=== PATIENT | male | born 1965 | race Caucasian/White ===

== ENCOUNTER → 2018-10-20 13:41 | Outpatient (CLI) | payer BC, SELFPAY ==
--- NOTE | 2018-10-20 13:46 | CT_ITS ---
CT sinus wo/w con CLINICAL INDICATION: ITS.REASON: NEW DAILY PERSISTENT HARRISON, HX SINUSITIS ORDERING PHYSICIAN: Faith Marie MD PATIENT AGE: 53 years COMPARISON: None TECHNIQUE:Axial images obtained with sagittal and coronal reformats. All CT scans at the facility use one or more dose reduction, viz: automated exposure control, ma/kV adjustment per patient size (including targeted exams where dose is matched to indication, i.e. head), or iterative reconstruction technique. FINDINGS: There is moderate mucosal thickening of the ethmoid sinuses bilaterally. The maxillary and frontal sinuses are unremarkable. There is minimal mucosal thickening of the sphenoid sinuses. No sinus air-fluid level is evident. There is mild leftward nasal septal deviation anteriorly and mild rightward nasal septal deviation posteriorly. There is narrowing of the right ostiomeatal complex from mucous or edema. The left OMC is patent. There are minimal osteoarthritic changes of the right TMJ. The orbits have an unremarkable appearance. No mastoid effusion. The middle ears are well aerated. IMPRESSION: Mild inflammatory changes of the paranasal sinuses with mild nasal septal deviation
== END ==
PROVIDERS: PCP Family Medicine; Visit Provider Family Medicine
DX: R51 Headache (principal); J32.9 Chronic sinusitis, unspecified
CPT/HCPCS: 70488

== ENCOUNTER → 2018-10-26 14:28 | Outpatient (CLI) | payer BC, SELFPAY | PROVIDERS: PCP Family Medicine; Visit Provider Family Medicine | DX: R51 Headache (principal); R06.83 Snoring; G47.33 Obstructive sleep apnea (adult) (pediatric) | CPT/HCPCS: 95806 ==

== ENCOUNTER → 2019-04-20 20:11 | Outpatient (CLI) | payer BC, SELFPAY | PROVIDERS: PCP Family Medicine; Visit Provider Specialist | DX: G47.33 Obstructive sleep apnea (adult) (pediatric) (principal); I10 Essential (primary) hypertension | CPT/HCPCS: 95811 ==

== ENCOUNTER → 2019-07-21 08:46 | Outpatient (CLI) | payer BC, SELFPAY ==
[2019-07-21 11:34] LABS: Alanine Aminotransferase 40 U/L (12-78); Albumin Level 3.6 gm/dL (3.4-5.0); Alkaline Phosphatase 82 U/L (46-116); Anion Gap 12.6 mEq/L (5-15); Aspartate Amino Transferase 26 U/L (15-37); Bilirubin,Total 0.2 mg/dL (0.2-1.0); Blood Urea Nitrogen 17 mg/dL (7-18); Calcium 8.9 mg/dL (8.5-10.1); Carbon Dioxide 30 mmol/L (21.0-32.0); Chloride 104 mmol/L (98-107); Creatinine,Serum 1.18 mg/dL (0.70-1.30); Estimated Glomerular Filt Rate 65 ml/min (>60); GFR (African American) 78 ML/MIN (>60); Globulin 3.5 gm/dl (1.3-3.2); Glucose 104 mg/dL (74-106); Potassium 4.6 mmoL/L (3.5-5.1); Sodium 142 mmol/L (136-145); Thyroid Stimulating Hormone 0.73 uIU/ml (0.358-3.740); Total Protein,Serum 7.1 gm/dL (6.4-8.2)
[2019-07-22 23:17] LABS: Folate 10.8 ng/mL (>3.0); Vitamin B12 566 pg/mL (232-1245)
== END ==
PROVIDERS: Visit Provider Nurse Practitioner Family
DX: G47.33 Obstructive sleep apnea (adult) (pediatric) (principal); G47.19 Other hypersomnia; R53.83 Other fatigue
CPT/HCPCS: 36415; 80053; 82607; 82746; 84443

== ENCOUNTER → 2019-08-03 08:41 | Outpatient (CLI) | payer BC, SELFPAY ==
--- NOTE | 2019-08-03 08:42 | FL_ITS ---
PROCEDURE: FL UPPER GI W AIR CLINICAL INDICATION: CHRONIC HEARTBURN COMPARISON: No exams were available for comparison TECHNIQUE: FLUOROSCOPY TIME : FINDINGS: The esophagus, stomach, and duodenum have an unremarkable appearance.There is no evidence of hiatal hernia. No ulcer or mass evident. No mucosal abnormalities apparent. There is normal peristalsis. The duodenal C-loop is nondisplaced. IMPRESSION: Negative upper Dictated by: Nate Emanuel MD 08/03/2019 18:17 Electronically signed by Nate Emanuel MD in [facility] 08/03/2019 18:17
== END ==
PROVIDERS: PCP Family Medicine; Visit Provider Family Medicine
DX: R12 Heartburn (principal)
CPT/HCPCS: 74247

== ENCOUNTER → 2020-04-05 10:13 | Outpatient (CLI) | payer BC, SELFPAY ==
--- NOTE | 2020-04-05 10:22 | XR_ITS ---
PROCEDURE: XR LUMBAR SPINE MIN 4V CLINICAL INDICATION: LOWER BACK PAIN COMPARISON: CR LS5 LUMBAR SPINE 5 VIEWS from 01/15/2017 FINDINGS: There is normal alignment. Small anterior endplate osteophytes are present from L1-S1 Disc spaces are well preserved. No fracture or dislocation. No lytic or blastic change. Other findings:None. IMPRESSION: Mild degenerative changes, no acute finding Dictated by: Nate Emanuel MD 04/05/2020 10:54 Nate Emanuel MD in [facility] 04/05/2020 10:54
== END ==
PROVIDERS: PCP Physician Assistant; Referring Provider Physician Assistant; Visit Provider Physician Assistant
DX: M54.5 Low back pain (principal)
CPT/HCPCS: 72110

== ENCOUNTER → 2020-10-17 13:43 | Outpatient (CLI) | payer BC, SELFPAY ==
--- NOTE | 2020-10-17 13:56 | CT_ITS ---
PROCEDURE: CT HEAD/BRAIN WO/W CON CLINICAL INDICATION: DIZZINESS COMPARISON: No exams were available for comparison TECHNIQUE: IV Contrast: 100ML Isovue 370 Axial images obtained. All CT scans at the facility use one or more dose reduction, viz: automated exposure control, ma/kV adjustment per patient size (including targeted exams where dose is matched to indication, i.e. head), or iterative reconstruction technique. FINDINGS: No midline shift, mass effect, intracranial hemorrhage, hydrocephalus, or extra-axial fluid collection is evident. The calvarium has an unremarkable appearance. There is opacification of the inferior aspect of the right mastoid sinus. Bilateral ethmoid sinus disease IMPRESSION: 1. No acute intracranial findings. 2. Sinus disease Dictated by: Nate Emanuel MD 10/17/2020 15:16 Nate Emanuel MD in [facility] 10/17/2020 15:16
== END ==
LOC: RAD 13:43 → RT 14:40
PROVIDERS: PCP Family Medicine; Visit Provider Family Medicine
DX: R42 Dizziness and giddiness (principal)
CPT/HCPCS: 70470; 93225; 93226; Q9967

== ENCOUNTER → 2021-11-26 14:21 | Outpatient (CLI) | payer OTHER, SELFPAY | PROVIDERS: PCP Family Medicine; Visit Provider Specialist | DX: G47.33 Obstructive sleep apnea (adult) (pediatric) (principal); Z90.89 Acquired absence of other organs | CPT/HCPCS: 95806 ==

== ENCOUNTER 2021-12-21 13:51 | Emergency (ER) | payer OTHER, SELFPAY ==
[2021-12-21] VITALS (7 sets, daily range): BP systolic 124–141; BP diastolic 62–85; PULSE 80–97; RESP 14–16; TEMP 36.9–37.1; O2SAT 98–100; BMI 22.8
--- NOTE | 2021-12-21 14:08 | HMH.EDFALL ---
ED Disposition Clinical Impression: Contusion Qualifiers: Encounter type: initial encounter Contusion area: lower back Qualified Code(s): S30.0XXA - Contusion of lower back and pelvis, initial encounter Disposition: Home, Self-Care Condition on Discharge: Fair Additional Instructions: Take [id number] ibuprofen and/or Tylenol as needed for your pain. Return to the emergency department if you feel worse in any way. Follow-up with your primary care doctor in about 3 to 4 days if you do not feel any better. Referrals: Faith Marie MD [Primary Care Provider] - - Critical Care Critical Care Time: No Attestation: On 12/21/21, the high probability of a clinically significant, sudden or life threatening deterioration of the following system(s) required my full and direct attention, intervention and personal management. The time I documented below is in addition to time spent performing reported procedures but includes the following listed in this critical care notation. Medical Decision Making - Dejuan Inquiry Pt receiving controlled substance: No Vital Signs: 12/21/21 13:52 12/21/21 14:30 12/21/21 15:00 Temperature 98.4 F Temperature Source Oral Pulse Rate 87 85 Pulse Rate [Right] 97 H Respiratory Rate 16 16 Blood Pressure 124/74 132/85 Blood Pressure [Right Arm] 139/62 Blood Pressure Mean 90 94 Blood Pressure Mean [Right Arm] 87 Blood Pressure Source [Right Arm] Automatic Cuff Blood Pressure Position [Right Arm] Sitting 02 Sat by Pulse Oximetry 100 100 98 Oxygen Delivery Method Room Air 12/21/21 15:30 12/21/21 16:00 12/21/21 16:30 Temperature Temperature Source Pulse Rate 84 90 80 Pulse Rate [Right] Respiratory Rate 14 15 Blood Pressure 132/71 141/78 H 128/74 Blood Pressure [Right Arm] Blood Pressure Mean 91 91 90 Blood Pressure Mean [Right Arm] Blood Pressure Source [Right Arm] Blood Pressure Position [Right Arm] 02 Sat by Pulse Oximetry 99 100 100 Oxygen Delivery Method Orders (Tests/Meds): ED MEDICATIONS Discontinued Medications Generic Name Dose Route Start Last Admin Trade Name Freq PRN Reason Stop Dose Admin Ketorolac Tromethamine 60 mg 12/21/21 14:11 12/21/21 14:18 Ketorolac 60mg/2ml Vial IM 12/21/21 14:12 60 mg ONCE ONE Administration Morphine Sulfate 4 mg 12/21/21 15:51 12/21/21 15:53 Morphine 4mg/Ml Syringe IM 12/21/21 15:52 4 mg ONCE ONE Administration - Radiology Data #1 Image(s): L-Spine Image Reviewed: Yes I reviewed the patient's radiology image, Yes I have reviewed radiologist's interpretation Preliminary Findings: Normal/NAD #2 Image(s): Pelvis Image Reviewed: Yes I reviewed the patient's radiology image, Yes I have reviewed radiologist's interpretation Preliminary Findings: Normal/NAD Medical Decision Narrative: The patient fell from about 13 feet onto concrete. He did not lose consciousness. He complains of lower back pain. Radiographs of the affected areas did not show any acute abnormalities. The patient is neurologically intact. His vital signs are stable. I feel that he can be safely discharged home. Fall HPI - General Stated Complaint: ao 12/21 fall, back pain Time Seen by Provider: 12/21/21 14:09 Mode of Arrival: Family Vehicle Source of Information: Patient - History of Present Illness HPI Narrative: The patient presents to the emergency department after having fallen off a ladder approximately 13 feet above the ground. He landed on concrete. He complains of lower back pain and pelvic pain. He denies loss of consciousness. He was ambulatory at the scene and in the emergency department. - Related Data Home Medications Medication Instructions Recorded Confirmed bupropion HCl 150 mg 24 hr tablet, 150 mg PO DAILY tab 12/17/19 11/04/21 extended release duloxetine 30 mg capsule,delayed 30 mg PO DAILY 10/29/20 11/04/21 release esomeprazo
--- NOTE | 2021-12-21 14:10 | XR_ITS ---
FINAL REPORT CLINICAL HISTORY: injury, fell off ladder, c/o mid thoracic spine pain COMPARISON: 04/05/2020 FINDINGS: LUMBAR SPINE AP and lateral views were obtained. There is no acute fracture or malalignment. There are mild degenerative changes with osteophytes. Vertebrae are normal height. Prevertebral soft tissues are unremarkable. IMPRESSION: No acute bony abnormality. Reviewed, Interpreted and Dictated by Neri Schmitt III, MD Transcribed by Faby Palacios Authenticated by Neri Schmitt III, MD on 12/21/2021 04:36:46 PM [facility]
--- NOTE | 2021-12-21 14:10 | XR_ITS ---
FINAL REPORT CLINICAL HISTORY: Fall, fell off ladder FINDINGS: SINGLE VIEW PELVIS: A single view of the pelvis was obtained. There is no acute fracture or dislocation. Vizualized joint spaces are normally aligned. Soft tissues are unremarkable. IMPRESSION: No acute bony abnormality. Reviewed, Interpreted and Dictated by Neri Schmitt III, MD Transcribed by Faby Palacios Authenticated by Neri Schmitt III, MD on 12/21/2021 04:36:47 PM [facility]
--- NOTE | 2021-12-21 15:01 | PC.NURSE ---
Updated and pt that someone had been back getting multiple films and he would be going back for films soon. Both ok with POC. No new needs
--- NOTE | 2021-12-21 15:27 | PC.NURSE ---
PT returned from CT
== END 2021-12-21 17:28 | disposition home or self-care (01) ==
PROVIDERS: Emergency Provider Emergency Medicine; PCP Family Medicine
DX: S30.0XXA Contusion of lower back and pelvis, initial encounter (principal); W01.0XXA Fall on same level from slipping, tripping and stumbling without subsequent striking against object, initial encounter; I10 Essential (primary) hypertension; K21.9 Gastro-esophageal reflux disease without esophagitis; Z79.899 Other long term (current) drug therapy
CPT/HCPCS: 72100; 72170; 96372; 99283

== ENCOUNTER → 2022-02-25 10:13 | Outpatient (CLI) | payer OTHER, SELFPAY ==
--- NOTE | 2022-02-25 10:18 | XR_ITS ---
FINAL REPORT CLINICAL HISTORY: LOW BACK PAIN COMPARISON: December 21, 2021 FINDINGS: 4 views were obtained. There has been interval fusion of T11-L1. There is progressive loss of height of T12 with interval changes of kyphoplasty. There are [id number] hypertrophic changes of degenerative disc disease throughout the lumbar spine. IMPRESSION: Interval postoperative changes with mild to moderate degenerative disc disease. Reviewed, Interpreted and Dictated by Keon Estrada MD Transcribed by Wilbur Singh Authenticated and . [facility]
== END ==
PROVIDERS: PCP Family Medicine; Visit Provider Physician Assistant
DX: M54.50 Low back pain, unspecified (principal)
CPT/HCPCS: 72110

== ENCOUNTER 2022-03-17 08:00 | Outpatient (RCR) | payer OTHER, SELFPAY | END 2022-03-25 16:51 | disposition home or self-care (01) | LOC: PT.CARL 08:00 | PROVIDERS: PCP Family Medicine; Visit Provider Neurological Surgery | DX: S22.000D Wedge compression fracture of unspecified thoracic vertebra, subsequent encounter for fracture with routine healing (principal) | CPT/HCPCS: 97010; 97014; 97035; 97110; 97112; 97140; 97163; 97164; 97530; G0283 ==

== ENCOUNTER 2022-09-24 09:15 | Day surgery (SDC) | payer OTHER, SELFPAY ==
[2022-09-22 14:24] VITALS: BMI 22.8
[2022-09-24] VITALS (7 sets, daily range): BP systolic 77–126; BP diastolic 51–73; PULSE 60–89; RESP 14–18; TEMP 36.1–36.8; O2SAT 93–98
--- NOTE | 2022-09-24 10:10 | P.PN_ITS ---
[facility] Disclaimer: The information contained in this section may have been updated after the patient was seen, as this information can be updated by other users. Medical History Hypertension Kidney stone Surgical History History of back surgery Family History Other No significant family history Social History Smoking Status: Never smoker alcohol intake: current substance use type: denies use current occupational status: employed Travel in the last 8 weeks: None household members: spouse housing: house marital status: education level: high school service: No current occupational exposures/hazards: Yes caffeine: Yes special adarsh needs: No agree to transfusion: No do you feel safe at home: Yes victim of physical abuse: No victim of emotional abuse: No victim of sexual abuse: No would you like helpful sources: No [facility] Anesthesia Checklist Patient Identification Patient Identification: Arm Band and Verbal (Name & ) Structural Data Admitted From: Home Planned Operative Procedure/s: Colonoscopy Consent for Planned Operative Procedure(s) Verified: Yes NPO Status Verified Time NPO: 00:00 Airway Assessment C-Spine Mobility Assessed: Yes TMJ Mobility Assessed: Yes Dentition: Good Dentition Neurological Assessment Level of Consciousness: Awake Hx Seizures: No Numbness or tingling in extremities: No Anesthesia Plan Anesthesia Risk discussed: Yes Anesthesia Plan: Verified ASA Class: II Anesthesia Type: MAC
--- NOTE | 2022-09-24 10:56 | HMH.SCOPE ---
Procedure: Date: 09/24/22 Patient Date of :: 1965 Procedure Performed:: Total colonoscopy with polypectomy using snare and biopsy Indications:: Patient is a 57-year-old male whom I had performed colonoscopy on on 03/09/2016 for some GI symptoms. He did have a minuscule polyp at that time. He recently has had some rectal bleeding over several weeks occurring occasionally when having a bowel movement. This is painless. He had discussed this with his primary care provider, Dr. Marie. He was scheduled for colonoscopy. Performing Provider:: Neri Rodriguez MD Referring Provider:: Tyler Marie MD Sedation:: MAC sedation Procedure:: Patient history was obtained and appropriate physical examination was performed. Patient's medications and allergies were reviewed. Informed consent was obtained after explaining the benefits, alternatives, and risks of the procedure including, but not limited to, bleeding, perforation, missed lesions, and adverse reaction to anesthesia medications. Patient was transported to endoscopy procedure room. Patient was connected to monitoring devices. Throughout the procedure the patient's blood pressure, pulse, and oxygen saturations were monitored continuously. Patient identification and planned procedure were verified by the staff. Patient was positioned in lateral decubitus position. Digital anorectal exam was performed. Variable stiffness Olympus colonoscope was inserted and advanced under direct visualization to the cecum. Adequacy of the colonic preparation was noted. The colonoscope was then slowly withdrawn while carefully examining the color, texture, anatomy, and integrity of the mucosoa circumferentially. Within the rectum retroflexion was performed. Colonoscope was then withdrawn. Findings:: Colonic preparation was good with irrigation and suctioning. There was a tiny diminutive polyp at the appendiceal orifice removed with cold biopsy. In the rectosigmoid region there was a tiny polyp removed with cold snare. This is possibly prolapse polyp. Retroflexion within the rectum revealed no evidence of any pathologic internal hemorrhoids. Careful colonoscopic evaluation of the anal canal revealed some minor irritation. Colonoscope was withdrawn. Recommendations:: Likely repeat colonoscopy 5 years pending pathology. He appears to have some minor irritation of the mucosa of the anorectal canal without true hemorrhoids. If this persists may try topical hemorrhoid treatment. Complications:: None immediate Estimated blood obtained (mL): 1
== END 2022-09-24 11:39 | disposition home or self-care (01) ==
PROVIDERS: PCP Family Medicine; Visit Provider Surgery
PROC: 0DJD8ZZ Inspection of Lower Intestinal Tract, Via Natural or Artificial Opening Endoscopic (ICD-10-PCS; CPT 45385; principal; 2022-09-24 10:30)
DX: K62.5 Hemorrhage of anus and rectum (principal); D12.7 Benign neoplasm of rectosigmoid junction; D12.0 Benign neoplasm of cecum; Z79.899 Other long term (current) drug therapy
CPT/HCPCS: 45385; 45380; J2704